=== PATIENT | male | born 1960 | race Caucasian/White ===

== ENCOUNTER 2017-03-12 20:36 | Emergency (ER) | payer OTHER ==
[~2017-03-12] VITALS: Ht 188 cm; Wt 104.6 kg
[2017-03-12] MEDS ORDERED: ZUPLENZ8 MG PO (21:16)
[2017-03-12 22:39] VITALS: BP 118/71
== END 2017-03-12 22:40 | disposition home or self-care (01) ==
LOC: EME → EDBD 20:36 → EME 20:36
DX: T62.8X1A Toxic effect of other specified noxious substances eaten as food, accidental (unintentional), initial encounter (principal); R11.2 Nausea with vomiting, unspecified; E86.0 Dehydration; E78.5 Hyperlipidemia, unspecified
CPT/HCPCS: 93005; 99281; 99284; J2405